=== PATIENT | female | born 1985 | race Caucasian/White ===

== ENCOUNTER 2017-11-10 21:44 | Emergency (ER) | payer OTHER ==
[~2017-11-10] VITALS: Ht 165.1 cm; Wt 56.7 kg
[~2017-11-10 21:44] MED LIST: AUGMENTIN 875875 MG PO; VICOPROFEN 2001 EACH PO; ZOFRAN 4 MG ORAL4 MG PO
[2017-11-10] MEDS ORDERED: MAXALT10 MG PO (21:57)
[2017-11-10] MEDS ORDERED: EFFEXOR XR37.5 MG PO (21:57)
[2017-11-10] MEDS ORDERED: XANAX 0.25 MG0.25 MG PO (21:58)
[2017-11-10] MEDS ORDERED: MIRENA1 EACH VAG (21:58)
[2017-11-10 22:10] LABS: URINE BILIRUBIN NEGATIVE (Negative); URINE BLOOD NEGATIVE (Negative); URINE CLARITY CLEAR; URINE COLOR YELLOW; URINE GLUCOSE-RANDOM NEGATIVE (Negative); URINE KETONES NEGATIVE (Negative); URINE LEUKOCYTES-REFLEX NEGATIVE (Negative); URINE NITRITE-REFLEX NEGATIVE (Negative); URINE PROTEIN NEGATIVE (Negative); URINE SPECIFIC GRAVITY 1.025 (1.005-1.030); URINE UROBILINOGEN 0.2 E.U./dl (0.2-1.0)
[2017-11-10 22:24] LABS: ABSOLUTE LYMPHOCYTES 1.3 thou/uL (0.8-5.3); ABSOLUTE MONOCYTES 0.4 thou/uL (0.0-1.2); ABSOLUTE NEUTROPHILS 2.5 thou/uL (1.6-8.1); BASOPHILS 0.5 %; EOSINOPHILS 0.7 %; HEMATOCRIT 37.6 % (37.0-47.0); HEMOGLOBIN 12.4 gm/dL (12.0-15.0); MCH 29.5 pg (26.0-34.0); MCV 89.4 fL (80.0-100.0); MONOCYTES 9.3 %; MPV 8.1 fl. (7.2-11.1); NUCLEATED RBCS 0 /100WBC; PLATELET COUNT* 153 thou/uL (150-400); POLYS 58.5 %; RDW-CV 13.2 % (10.5-14.5); WBC 4.3 thou/uL (4.0-11.0)
[2017-11-10 22:28] LABS: CALCIUM 8.7 mg/dL (8.5-10.1); CREATININE 0.6 mg/dL (0.6-1.3); POTASSIUM 3.7 mmol/L (3.5-5.1)
[2017-11-10 22:32] LABS: ALBUMIN 3.6 g/dL (3.4-5.0); TOTAL BILIRUBIN 0.5 mg/dL (<0.1-1.0)
[2017-11-10] MEDS ORDERED: ANTIVERT25 MG PO (23:20)
[2017-11-10] MEDS ORDERED: ZOFRAN4 MG PO (23:20)
[2017-11-10 23:29] VITALS: BP 135/85
--- NOTE | 2017-11-11 13:08 | EKG ---
[place] [address] ELECTROCARDIOGRAM REPORT Name: FRANNY NEAL Room: [facility]#: [id number] Admission: 11/10/17 Attend Phys: Discharge: 11/10/17 Date of : 87 Report #: [id number] THIS REPORT FOR: //name// [facility] ED Test Date: 2017-11-10 Test Time: 23:06:04 Pat Name: FRANNY NEAL Department: Room: Gender: F Field Auditor: TIFFANIE : 1985 Requested By: Olga Valdez Order Number: [id number] MD: Yousif Chan Measurements Intervals [place] Rate: 62 P: 74 MD: 178 QRS: 24 QRSD: 106 T: 57 QT: 413 QTc: 420 Interpretive Statements Sinus rhythm RSR' in V1 or V2, right VCD or RVH Baseline wander in lead(s) V3 No previous ECG available for comparison Electronically Signed On 11-11-2017 13:08:34 CDT by Yousif Chan [email or web address] <ELECTRONICALLY SIGNED> By: Yousif Chan MD, [facility] 11/11/17 [id number] Yousif Chan MD, [facility] /EPI
== END 2017-11-10 23:30 | disposition home or self-care (01) ==
LOC: M.ERS 21:44
PROVIDERS: Nurse Practitioner Family
DX: R42 Dizziness and giddiness (principal)

== ENCOUNTER 2020-04-24 17:36 | Emergency (ER) | payer OTHER ==
[~2020-04-24] VITALS: Ht 160 cm; Wt 60.3 kg
[~2020-04-24 17:36] MED LIST changes: +ANTIVERT25 MG PO; +EFFEXOR XR37.5 MG PO; +MAXALT10 MG PO; +MIRENA1 EACH VAG; +XANAX 0.25 MG0.25 MG PO; +ZOFRAN4 MG PO
[2020-04-24] MEDS ORDERED: CLONAZEPAM 0.50.5 M1 PO (17:50)
[2020-04-24 18:14] LABS: ABSOLUTE LYMPHOCYTES 0.7 thou/uL (0.8-5.3); ABSOLUTE MONOCYTES 0.3 thou/uL (0.0-1.2); ABSOLUTE NEUTROPHILS 1.1 thou/uL (1.6-8.1); BASOPHILS 0.8 %; EOSINOPHILS 0.3 %; HEMATOCRIT 37.2 % (37.0-47.0); HEMOGLOBIN 12.4 gm/dL (12.0-15.0); LYMPHOCYTES 35.1 %; MCH 28.6 pg (26.0-34.0); MCHC 33.3 g/dL (28.0-37.0); MCV 85.9 fL (80.0-100.0); MONOCYTES 12.4 %; NUCLEATED RBCS 0 /100WBC; PLATELET COUNT* 121 thou/uL (150-400); POLYS 51.4 %; RBC 4.33 mil/uL (4.20-5.00); RDW-CV 13.5 % (10.5-14.5); WBC 2.1 thou/uL (4.0-11.0)
[2020-04-24 18:18] LABS: CALCIUM 8.8 mg/dL (8.5-10.1); CREATININE 0.7 mg/dL (0.6-1.3); POTASSIUM 3.1 mmol/L (3.5-5.1)
[2020-04-24 18:33] LABS: ALBUMIN 3.8 g/dL (3.4-5.0); TOTAL BILIRUBIN 0.3 mg/dL (<0.1-1.0); TOTAL PROTEIN 7.5 g/dL (6.4-8.2)
[2020-04-24] MEDS ORDERED: PREDNISONE 20 M20 MG PO (19:16)
[2020-04-24] MEDS ORDERED: PROAIR HFA8.5 GM INH (19:16)
[2020-04-24] MEDS ORDERED: KLOR-CON 10 ER10 MEQ PO (19:16)
[2020-04-24] MEDS ORDERED: AZITHROMYCIN 2250 MG PO (19:16)
[2020-04-24 20:58] VITALS: BP 110/63
--- NOTE | 2020-04-26 12:11 | EKG ---
[place] [address] ELECTROCARDIOGRAM REPORT Name: FRANNY NEAL Bob Room: [facility]#: [id number] Admission: 04/24/20 Attend Phys: Discharge: 04/24/20 Date of : 87 Date of Service: 04/24/20 174 Report #: [id number] THIS REPORT FOR: //name// [facility] ED Test Date: 2020-04-24 Test Time: 17:44:53 Pat Name: FRANNY NEAL Department: Room: Gender: [employer] Picker: : 1985 Requested By: Roseann Aguila Order Number: [id number] MD: Andrew Whitney Measurements Intervals [place] Rate: 71 P: [place]: QRS: 15 QRSD: 112 T: 63 QT: 403 QTc: 438 Interpretive Statements Atrial fibrillation Borderline intraventricular conduction delay Baseline wander in lead(s) II,III,aVL,aVF Compared to ECG 11/10/2017 23:06:04 Sinus rhythm no longer present Right ventricular hypertrophy no longer present Electronically Signed On 04-26-2020 12:11:26 CDT by Andrew Whitney [email or web address] <ELECTRONICALLY SIGNED> By: Deshawn Whitney MD, FACC 04/26/20 1211 [id number] Deshawn Whitney MD, FACC /EPI
== END 2020-04-24 20:45 | disposition home or self-care (01) ==
LOC: M.ERS 17:36
PROVIDERS: Physician Assistant
DX: R07.9 Chest pain, unspecified (principal); U07.1 COVID-19; D72.819 Decreased white blood cell count, unspecified; E87.6 Hypokalemia; G43.909 Migraine, unspecified, not intractable, without status migrainosus; Z88.8 Allergy status to other drugs, medicaments and biological substances

== ENCOUNTER 2020-12-26 15:49 | Emergency (ER) | payer OTHER ==
[~2020-12-26] VITALS: Ht 167.6 cm; Wt 49.0 kg
[~2020-12-26 15:49] MED LIST changes: +AZITHROMYCIN 2250 MG PO; +CLONAZEPAM 0.50.5 M1 PO; +KLOR-CON 10 ER10 MEQ PO; +PREDNISONE 20 M20 MG PO; +PROAIR HFA8.5 GM INH
[2020-12-26] MEDS ORDERED: WELLBUTRIN 100100 MG PO (16:01)
[2020-12-26] MEDS ORDERED: CLINDAMYCIN (16:01)
[2020-12-26] MEDS ORDERED: LAMICTAL150 MG PO (16:01)
[2020-12-26] MEDS ORDERED: CLINDAGEL75 ML TOP (16:01)
[2020-12-26] MEDS ORDERED: NORCO5 PO (16:37)
[2020-12-26 16:45] VITALS: BP 112/71
== END 2020-12-26 16:50 | disposition home or self-care (01) ==
LOC: M.ERS 15:49
DX: L03.031 Cellulitis of right toe (principal); G43.909 Migraine, unspecified, not intractable, without status migrainosus; Z88.8 Allergy status to other drugs, medicaments and biological substances